=== PATIENT | female | born 1985 ===

== ENCOUNTER 2017-01-20 01:00 | Emergency (ER) | payer MEDICAID, OTHER ==
[2017-01-20] MEDS ORDERED: Albuterol-Ipratrop 3 mg / 0.5 (3 ml) UD INH STA (01:47)
[2017-01-20] MEDS ORDERED: Albuterol-Ipratrop 3 mg / 0.5 (3 ml) UD ONE (01:53)
--- NOTE | 2017-01-20 02:00 | C.PDOC ---
History Of Present Illness 31 y/o female presents to ER with c/o of dry cough x 3 days. Pt took cough drops and home remedies with no relief, now c/o of chest congestion and chest tightness. Pt ran out of albuterol inhaler. Pt is 16 week . Denies SOB, calf pain, fever Time Seen by Provider: 01/20/17 01:25 Chief Complaint (Nursing): Cough, Cold, Congestion History Per: Patient History/Exam Limitations: no limitations Current Symptoms Are (Timing): Still Present Sick Contacts (Context): None Associated Symptoms: Sore Throat, Cough. denies: Sinus Drainage, Nasal Congestion, Vomiting Ear Symptoms: Bilateral: None Severity: Moderate Past Medical History Vital Signs: Last Vital Signs Temp 98.7 F 01/20/17 01:21 Pulse 72 01/20/17 01:21 Resp 16 01/20/17 01:21 BP 107/68 01/20/17 01:21 Pulse Ox 96 01/20/17 01:21 - Medical History PMH: Anxiety, Asthma, Bipolar Disorder, Depression, Sexually Transmitted Disease Denies: HIV, HTN, Seizures - [facility] Procedures INDIVID PSYCHOTHERAP NEC (04/27/14) OTHER GROUP THERAPY (04/27/14) PSYCHIAT DRUG THERAP NEC (04/27/14) Family History: States: Diabetes - Social History Hx Tobacco Use: No Hx Alcohol Use: No Hx Substance Use: No - Immunization History Hx Tetanus Toxoid Vaccination: No Hx Influenza Vaccination: No Hx Pneumococcal Vaccination: No Review Of Systems Constitutional: Negative for: Fever, Chills Respiratory: Positive for: Cough. Negative for: Shortness of Breath, Wheezing Gastrointestinal: Negative for: Vomiting, Abdominal Pain Physical Exam - Physical Exam Appears: Well, Non-toxic, No Acute Distress Skin: Normal Color Eye(s): bilateral: Normal Inspection, PERRL Nose: Normal Throat: Normal, No Erythema Chest: Symmetrical Cardiovascular: Rhythm Regular, No Murmur Respiratory: Decreased Breath Sounds (minimal), No Rhonchi, Wheezing (exp scattered) Gastrointestinal/Abdominal: Normal Exam (gravid), No Tenderness Neurological/Psych: Oriented x3 ED Course And Treatment O2 Sat by Pulse Oximetry: 96 Disposition Counseled Patient/Family Regarding: Diagnosis, Need For Followup, Rx Given - Disposition Disposition: HOME/ ROUTINE Disposition Time: 02:05 Condition: STABLE Additional Instructions: Use albuterol inhaler as needed Take meds as directed Follow up with your doctor Return to ER if worse Prescriptions: Albuterol HFA [Ventolin HFA 90 mcg/actuation (8 g)] 2 puff IH [id number] #1 inhaler predniSONE [Prednisone] 40 mg PO DAILY #10 tab Instructions: Upper Respiratory Infection (ED) - Clinical Impression Clinical Impression: Upper respiratory infection, Asthma, mild
[2017-01-20 04:28] VITALS: BP 111/66; PULSE 77; RESP 18; TEMP 97.9; O2SAT 99
== END 2017-01-20 04:32 | disposition home or self-care (01) ==
LOC: C.ER 01:00
DX: O99.512 Diseases of the respiratory system complicating pregnancy, second trimester (principal); J06.9 Acute upper respiratory infection, unspecified; J45.909 Unspecified asthma, uncomplicated; O99.342 Other mental disorders complicating pregnancy, second trimester; F32.89 Other specified depressive episodes; Z3A.16 16 weeks gestation of pregnancy

== ENCOUNTER 2017-01-20 16:30 | Emergency (ER) | payer OTHER ==
[2017-01-20 16:59] VITALS: BMI 18.8
[2017-01-20 17:05] VITALS: BP 112/67; PULSE 90; TEMP 97.8; O2SAT 98
[2017-01-20 17:16] VITALS: RESP 16
[2017-01-20] MEDS ORDERED: Albuterol 0.083% Inhal Sol (2.5 mg/3 mL) UD IH STA (17:23)
[2017-01-20] MEDS ORDERED: Albuterol-Ipratrop 3 mg / 0.5 (3 ml) UD ONE (17:53)
--- NOTE | 2017-01-20 18:09 | C.PDOC ---
History Of Present Illness 31 y/o female 4 months , , was seen in ED overnight for asthma, SOB and wheezing. Pt felt better and was sent home with albuterol and prednisone. Today patient was woken up by police who came to her home to get her ex- boyfriend, patient became anxious, SOB and had pelvic cramping. Pt states "I'm worried about the baby" and also notes pressure when urinating. Pt denies chest pain, vaginal bleeding, vomiting, diarrhea, fever, dysuria or any other complaints. Time Seen by Provider: 01/20/17 17:08 Chief Complaint (Nursing): Shortness Of Breath History Per: Patient History/Exam Limitations: no limitations Onset/Duration Of Symptoms: Hrs Current Symptoms Are (Timing): Still Present Severity: Mild Associated Symptoms: denies: Fever Recent travel outside of the [place]: No Past Medical History Reviewed: Historical Data, Nursing Documentation, Vital Signs Vital Signs: Last Vital Signs Temp 97.8 F 01/20/17 17:00 Pulse 90 01/20/17 17:00 Resp 16 01/20/17 17:15 BP 112/67 01/20/17 17:00 Pulse Ox 98 01/20/17 18:14 - Medical History PMH: Anxiety, Asthma, Bipolar Disorder, Depression, Sexually Transmitted Disease - [facility] Procedures INDIVID PSYCHOTHERAP NEC (04/27/14) OTHER GROUP THERAPY (04/27/14) PSYCHIAT DRUG THERAP NEC (04/27/14) Family History: States: Diabetes - Social History Hx Tobacco Use: No Hx Alcohol Use: No Hx Substance Use: No - Immunization History Hx Tetanus Toxoid Vaccination: No Hx Influenza Vaccination: No Hx Pneumococcal Vaccination: No Review Of Systems Except As Marked, All Systems Reviewed And Found Negative. Constitutional: Negative for: Fever, Chills Cardiovascular: Negative for: Chest Pain Respiratory: Positive for: Shortness of Breath Gastrointestinal: Positive for: Abdominal Pain. Negative for: Vomiting, Diarrhea Genitourinary: Negative for: Dysuria, Vaginal Discharge, Vaginal Bleeding Psych: Positive for: Anxiety Physical Exam - Physical Exam Appears: Non-toxic, No Acute Distress, Other (speaking in full sentences) Skin: Warm, Dry, No Rash Head: Atraumatic, Normacephalic Nose: Normal Neck: Normal ROM Chest: Symmetrical Cardiovascular: Rhythm Regular, No Murmur Respiratory: Normal Breath Sounds, No Rales, No Rhonchi, No Wheezing Gastrointestinal/Abdominal: No Tenderness, Other (Gravid, fundus 2 cm below umbilicus) Extremity: Bilateral: Atraumatic Neurological/Psych: Oriented x3 ED Course And Treatment O2 Sat by Pulse Oximetry: 98 (on room air) Pulse Ox Interpretation: Normal Progress Note: Plan: ua, albuterol, heart tones Disposition Counseled Patient/Family Regarding: Diagnosis, Need For Followup, Rx Given - Disposition Referrals: Luis Kirby [Staff Provider] - Disposition: HOME/ ROUTINE Disposition Time: 19:05 Condition: STABLE Additional Instructions: FOLLOW UP WITH YOUR MOTOR [employer]HICLE INSPECTOR WITHIN 1 WEEK USE ASTHMA MEDICATIONS GIVEN TO YOU DURING EARLIER VISIT RETURN TO ER IF SYMPTOMS WORSEN Prescriptions: Nitrofurantoin Macrocrystals [Macrobid] 1 cap PO BID #14 cap Instructions: Asthma (ED), Urinary Tract Infection in (ED) Print Language: TELUGU - Clinical Impression Clinical Impression: UTI in , Asthma, mild - Scribe Statement The provider has reviewed the documentation as recorded by the Sarah Neff Provider Attestation: All medical record entries made by the Sarah were at my direction and personally dictated by me. I have reviewed the chart and agree that the record accurately reflects my personal performance of the history, physical exam, medical decision making, and the department course for this patient. I have also personally directed, reviewed, and agree with the discharge instructions and disposition.
[2017-01-20 18:59] LABS: RBC URINE 3 /hpf (0-3); TRANSITIONAL EPITHIAL < 1 /hpf (0-3); URINE BACTERIA OCC (<OCC); URINE BILIRUBIN NEGATIVE (NEGATIVE); URINE BLOOD NEGATIVE (NEGATIVE); URINE COLOR Yellow (YELLOW); URINE GLUCOSE (UA) NORMAL (Normal); URINE KETONE 1+ mg/dL (NEGATIVE); URINE PROTEIN NEGATIVE (NEGATIVE); WBC URINE 8 /hpf (0-5)
[2017-01-20 19:00] LABS: URINE LEUKOCYTE ESTERASE 1+ Leu/uL (Negative)
== END 2017-01-20 19:28 | disposition home or self-care (01) ==
LOC: C.ER 16:30
DX: O23.42 Unspecified infection of urinary tract in pregnancy, second trimester (principal); O99.512 Diseases of the respiratory system complicating pregnancy, second trimester; J45.909 Unspecified asthma, uncomplicated; Z3A.16 16 weeks gestation of pregnancy

== ENCOUNTER 2017-02-05 18:28 | Emergency (ER) | payer OTHER ==
[2017-02-05 18:29] VITALS: BMI 18.8
[2017-02-05 18:40] VITALS: TEMP 98.2
[2017-02-05] MEDS ORDERED: Sodium Chloride 0.9% 1,000 ML IV ONE (19:51)
--- NOTE | 2017-02-05 19:51 | C.PDOC ---
History Of Present Illness Pt presents with episodes of dizziness over the last few days. Occasionally get them when she stands, or walk,. No visual changes.,, no slurred speech. neuro non focal Time Seen by Provider: 02/05/17 19:51 Chief Complaint (Nursing): Dizziness/Lightheaded History Per: Patient History/Exam Limitations: no limitations Onset/Duration Of Symptoms: Days Current Symptoms Are (Timing): Still Present (but intermittent) Activity At Onset Of Symptoms: Sitting, Standing, Walking, Change In Head Position Fall Associated With With Symptoms: No Severity: Mild Pain Scale Rating Of: 3 Recent travel outside of the [place]: No Additional History Per: Patient - Symptoms Of CVA Associated Symptoms: denies: Impaired Speech, Seizure Activity Recent Aspirin Use: No Current Coumadin Use?: No Recent Head Trauma: No Past Medical History Reviewed: Historical Data, Nursing Documentation, Vital Signs Vital Signs: Last Vital Signs Temp 98.2 F 02/05/17 18:39 Pulse 89 02/05/17 18:39 Resp 19 02/05/17 18:39 BP 109/72 02/05/17 18:39 Pulse Ox 100 02/05/17 20:13 - Medical History PMH: Anxiety, Asthma, Bipolar Disorder, Depression, Sexually Transmitted Disease Denies: Diabetes, Hepatitis, HIV, HTN, Seizures - [facility] Procedures INDIVID PSYCHOTHERAP NEC (04/27/14) OTHER GROUP THERAPY (04/27/14) PSYCHIAT DRUG THERAP NEC (04/27/14) Family History: States: Diabetes - Social History Hx Tobacco Use: No Hx Alcohol Use: No Hx Substance Use: No - Immunization History Hx Tetanus Toxoid Vaccination: No Hx Influenza Vaccination: No Hx Pneumococcal Vaccination: No Review Of Systems Constitutional: Negative for: Fever, Chills ENT: Negative for: Throat Pain Cardiovascular: Negative for: Chest Pain, Palpitations Respiratory: Negative for: Shortness of Breath Gastrointestinal: Negative for: Nausea, Vomiting, Abdominal Pain Genitourinary: Negative for: Dysuria Musculoskeletal: Negative for: Back Pain Skin: Negative for: Rash, Lesions, Jaundice, Bruising Neurological: Positive for: Dizziness. Negative for: Weakness Psych: Negative for: Anxiety Physical Exam - Physical Exam Appears: Non-toxic, No Acute Distress Skin: Warm, Dry Eye(s): bilateral: Normal Inspection, PERRL, EOMI Oral Mucosa: Dry Chest: Symmetrical Cardiovascular: Rhythm Regular Respiratory: No Rales, No Rhonchi, No Wheezing Gastrointestinal/Abdominal: Soft, No Tenderness, Distention (gravid to xyfoid) Back: Normal Inspection Extremity: Normal ROM Extremity: Bilateral: Atraumatic, Normal Color And Temperature Neurological/Psych: Oriented x3, Normal Speech, Normal Cognition Gait: Steady ED Course And Treatment - Laboratory Results Result Diagrams: 02/05/17 20:24 02/05/17 19:51 ECG: Interpreted By Me, Viewed By Me ECG Rhythm: Sinus Rhythm (78), Nonspecific Changes O2 Sat by Pulse Oximetry: 100 Pulse Ox Interpretation: Normal Progress Note: blood work , ivf Reevaluation Time: 22:03 Reassessment Condition: Improved Medical Decision Making Medical Decision Making: Upon provider reevaluation patient is feeling better, is medically stable, and requires no further treatment in the ED at this time. Patient will be discharged home . Counseling was provided and all questions were answered regarding diagnosis and need for follow up with Dr. Kirby. There is agreement to discharge plan. Return if symptoms persist or worsen. Disposition Counseled Patient/Family Regarding: Studies Performed, Diagnosis, Need For Followup - Disposition Referrals: Luis Kirby [Staff Provider] - Disposition: HOME/ ROUTINE Disposition Time: 19:51 Condition: FAIR Instructions: Dizziness (ED), (ED) - Clinical Impression Clinical Impression: Dizziness
[2017-02-05] MEDS ORDERED: Sodium Chloride 0.9% 1,000 ML ONE (20:05)
[2017-02-05 20:22] LABS: BASO % 0.6 % (0.0-2.0); EOS # 0.2 K/uL (0.0-0.7); EOS % 2.5 % (0.0-4.0); HEMATOCRIT 33.9 % (34.0-47.0); LYMPH # 1.7 K/uL (1.0-4.3); LYMPH % 26.9 % (20.0-40.0); MEAN CELL VOLUME 90.4 fL (81.0-99.0); MEAN CORPUSCULAR HEMOGLOBIN 30.6 pg (27.0-31.0); MEAN CORPUSCULAR HGB CONC 33.9 g/dL (33.0-37.0); MEAN PLATELET VOLUME 7.9 fL (7.2-11.7); MONO # 0.6 K/uL (0.0-0.8); RED CELL DISTRIBUTION WIDTH 12.4 % (11.5-14.5); WHITE BLOOD COUNT 6.4 K/uL (4.8-10.8)
[2017-02-05 20:30] LABS: RBC URINE < 1 /hpf (0-3); URINE BACTERIA OCC (<OCC); URINE BILIRUBIN NEGATIVE (NEGATIVE); URINE BLOOD NEGATIVE (NEGATIVE); URINE COLOR Yellow (YELLOW); URINE GLUCOSE (UA) NORMAL (Normal); URINE KETONE NEGATIVE (NEGATIVE); URINE LEUKOCYTE ESTERASE TRACE Leu/uL (Negative); URINE PROTEIN NEGATIVE (NEGATIVE); WBC URINE 4 /hpf (0-5)
[2017-02-05 20:49] LABS: CHLORIDE 100 mmol/L (98-107); POTASSIUM 3.9 mmol/L (3.6-5.2); SODIUM 136 mmol/L (132-148)
[2017-02-05 20:51] LABS: BILIRUBIN,TOTAL 0.4 mg/dL (0.2-1.3); GFR AFRICAN-AMERICAN > 60
[2017-02-05 20:52] LABS: ALB/GLOB RATIO 1.2 (1.0-2.1); ALKALINE PHOSPHATASE 55 U/L (38-126); ALT/SGPT 14 U/L (9-52); AST/SGOT 31 U/L (14-36); BLOOD UREA NITROGEN 9 mg/dL (7-17); CALCIUM 8.5 mg/dl (8.6-10.4); CARBON DIOXIDE 24 mmol/L (22-30); GLUCOSE,RANDOM 74 mg/dL (65-105); TOTAL PROTEIN 6.5 g/dL (6.3-8.3)
[2017-02-05 22:19] VITALS: BP 110/70; PULSE 90; RESP 16; O2SAT 98
--- NOTE | 2017-02-09 12:23 | CARD ---
APPROVED REPORT EKG Measurement Heart [id number] [id number] <Conclusion> Normal sinus rhythm Early repolarization Normal ECG
== END 2017-02-05 22:19 | disposition home or self-care (01) ==
LOC: C.ER 18:28
DX: R42 Dizziness and giddiness (principal)
CPT/HCPCS: 80053; 81001; 82948; 84702; 85025; 99285; J7040

== ENCOUNTER 2018-08-09 20:11 | Emergency (ER) | payer MEDICAID, OTHER ==
[2018-08-09 20:11] VITALS: BMI 18.8
[2018-08-09 20:20] VITALS: RESP 14; TEMP 97.8
--- NOTE | 2018-08-09 21:07 | C.PDOC ---
History Of Present Illness 33 y/o F c PMHx asthma, pericarditis p/w chest pain x 2 days. States feels similar to pericarditis in the past. Midsternal, radiates to back and L arm associated with fatigue. Reports shortness of breath on exertion. Denies fever, nausea, vomiting, constipation, diarrhea. Currently . On menstrual period. Time Seen by Provider: 08/09/18 20:50 Chief Complaint (Nursing): Chest Pain History Per: Patient History/Exam Limitations: no limitations Onset/Duration Of Symptoms: Days Current Symptoms Are (Timing): Still Present Past Medical History Reviewed: Historical Data, Nursing Documentation, Vital Signs Vital Signs: Last Vital Signs Temp 97.8 F 08/09/18 20: Pulse 84 08/09/18 20:18 Resp 14 08/09/18 20:18 BP 120/79 08/09/18 20:18 Pulse Ox 97 08/09/18 20:18 - Medical History PMH: Anxiety, Asthma, Bipolar Disorder, Depression, Pericarditis, Sexually Transmitted Disease Denies: Diabetes, Hepatitis, HIV, HTN, Seizures - [facility] Procedures INDIVID PSYCHOTHERAP NEC (04/27/14) OTHER GROUP THERAPY (04/27/14) PSYCHIAT DRUG THERAP NEC (04/27/14) Family History: States: Diabetes - Social History Hx Tobacco Use: No Hx Alcohol Use: No Hx Substance Use: No - Immunization History Hx Tetanus Toxoid Vaccination: No Hx Influenza Vaccination: No Hx Pneumococcal Vaccination: No Review Of Systems Except As Marked, All Systems Reviewed And Found Negative. Constitutional: Negative for: Fever Cardiovascular: Positive for: Chest Pain Respiratory: Positive for: SOB with Excertion Gastrointestinal: Negative for: Nausea, Vomiting Physical Exam - Physical Exam Additional Physical Exam Comments: Constitutional: No hypotension. No acute distress. Head: Normocephalic. Atraumatic. Eyes: PERRL. ENT: Moist mucous membranes. Neck: Supple. No JVD. Cardiovascular: Regular rate. No murmurs. No extra heart sounds. No muffled heart sounds. Radial pulse 2+ bilaterally. Chest: No tenderness. Respiratory: Clear to auscultation bilaterally. GI: Soft. Nontender. Back: No CVA tenderness. Musculoskeletal: No tenderness or swelling of extremities. Skin: No rash. Neurologic: Alert, no focal deficit. ED Course And Treatment - Laboratory Results Result Diagrams: 08/09/18 21:33 08/09/18 21:33 O2 Sat by Pulse Oximetry: 97 (RA) Pulse Ox Interpretation: Normal Medical Decision Making Medical Decision Making: Trop/CK, EKG. NSAIDs. EKG NSR 70 bpm, ST elevations diffusely with AL depressions. CXR no acute disease. No cardiomegaly. Bedside US shows no pericardial effusion. Patient states she feels much better after toradol administration. Discharged home, f/u PMD and cardiology, continue NSAIDs, instructed to return to ED for worsening pain, fever, dyspnea, or any other problem. Disposition - Disposition Referrals: Brandi Pete MD [Staff Provider] - Disposition: HOME/ ROUTINE Disposition Time: 22:43 Condition: STABLE Prescriptions: Ibuprofen [Motrin] 1 tab PO Q6 #30 tab Instructions: Pericarditis in Adults Forms: [facility] ([place]) - Clinical Impression Clinical Impression: Pericarditis
[2018-08-09 21:44] LABS: BASO % 0.6 % (0.0-2.0); EOS # 0.1 K/uL (0.0-0.7); EOS % 2.9 % (0.0-4.0); HEMOGLOBIN 12.2 g/dL (11.0-16.0); LYMPH % 46.1 % (20.0-40.0); MEAN CELL VOLUME 90.1 fL (81.0-99.0); MEAN CORPUSCULAR HEMOGLOBIN 31.3 pg (27.0-31.0); MEAN CORPUSCULAR HGB CONC 34.7 g/dL (33.0-37.0); MONO # 0.3 K/uL (0.0-0.8); MONO % 6.5 % (0.0-10.0); NEUT # 1.9 K/uL (1.8-7.0); NEUT % 43.9 % (50.0-75.0); NRBC % 0.3 % (0.0-2.0); RBC 3.9 Mil/uL (3.80-5.20); WHITE BLOOD COUNT 4.4 K/uL (4.8-10.8)
[2018-08-09 21:50] LABS: URINE BILIRUBIN NEGATIVE (NEGATIVE); URINE BLOOD 1+ (NEGATIVE); URINE CLARITY Clear (Clear); URINE COLOR Straw (YELLOW); URINE GLUCOSE (UA) NORMAL (Normal); URINE LEUKOCYTE ESTERASE NEG Leu/uL (Negative); URINE PROTEIN NEGATIVE (NEGATIVE); URINE UROBILINOGEN NORMAL mg/dL (0.2-1.0)
[2018-08-09 21:52] LABS: HCG,QUALITATIVE URINE NEGATIVE (NEGATIVE)
[2018-08-09 22:03] LABS: ALB/GLOB RATIO 1.7 (1.0-2.1); ALBUMIN 4.6 g/dL (3.5-5.0); ALT/SGPT 23 U/L (9-52); AST/SGOT 18 U/L (14-36); BLOOD UREA NITROGEN 22 mg/dL (7-17); CALCIUM 9.5 mg/dl (8.6-10.4); GFR NON-AFRICAN AMERICAN > 60
[2018-08-09 22:15] LABS: CK-MB 0.69 ng/mL (0.0-3.38)
[2018-08-09 22:33] VITALS: BP 122/66; PULSE 66
[2018-08-09 22:41] VITALS: O2SAT 97
--- NOTE | 2018-08-10 10:39 | RAD ---
HISTORY: chest pain COMPARISON: Chest x-ray performed 03/18/16 TECHNIQUE: Chest, one view. FINDINGS: LUNGS: No focal consolidation. Scattered tiny probable calcified granulomas. Please note that chest x-ray has limited sensitivity for the detection of pulmonary masses. PLEURA: No significant pleural effusion identified. No definite pneumothorax . CARDIOVASCULAR: The cardiomediastinal silhouette appears within normal limits of size. OSSEOUS STRUCTURES: No acute osseous abnormality identified. VISUALIZED UPPER ABDOMEN: Unremarkable. OTHER FINDINGS: None. IMPRESSION: No acute findings. See above.
--- NOTE | 2018-08-11 08:03 | CARD ---
APPROVED REPORT Date of service: 08/09/2018 EKG Measurement Heart [id number] [id number] <Conclusion> Normal sinus rhythm Possible Left atrial enlargement Early repolarization Borderline ECG
== END 2018-08-09 23:03 | disposition home or self-care (01) ==
LOC: C.ER 20:11
DX: I31.9 Disease of pericardium, unspecified (principal); J45.909 Unspecified asthma, uncomplicated; F41.9 Anxiety disorder, unspecified
CPT/HCPCS: 71045; 80053; 81001; 82550; 82553; 84484; 84703; 85025; 93005; 96374; 99285; J1885